=== PATIENT | female | born 1985 | race American Indian/Alaskan Native ===

== ENCOUNTER 2016-09-22 21:30 | Emergency (ER) | payer MEDICAID ==
[2016-09-22 22:47] LABS: Basophils % (Auto) 0.2 % (0.0-1.8); Hematocrit 39.9 % (30.3-42.9); Hemoglobin 13.3 gm/dl (10.1-14.3); Mean Corpuscular HGB Conc 33 % (30-34); Mean Corpuscular Hemoglobin 33 pg (28-32); Mean Corpuscular Volume 100 fl (79-97); Platelet Count 244 K/mm3 (140-440); Red Blood Count 3.98 M/mm3 (3.65-5.03); Red Cell Distribution Width 15.3 % (13.2-15.2); White Blood Count 14.5 K/mm3 (4.5-11.0)
[2016-09-22 23:58] LABS: Alanine Aminotransferase 8 units/L (7-56); Albumin/Globulin Ratio 1.3 %; Alkaline Phosphatase 70 units/L (35-129); Anion Gap 19 mmol/L; Bilirubin,Total 1.3 mg/dL (0.1-1.2); Blood Urea Nitrogen 6 mg/dL (7-17); Calcium 8.9 mg/dL (8.4-10.2); Carbon Dioxide 23 mmol/L (22-30); Chloride 99.4 mmol/L (98-107); Glucose 96 mg/dL (65-100); Lipase 12 units/L (13-60); Potassium 3.5 mmol/L (3.6-5.0); Sodium 138 mmol/L (137-145)
[2016-09-23 00:56] VITALS: BP 136/99
--- NOTE | 2016-09-24 11:05 | ED Elopement Review ---
ED Pt Elopement review - Results review Lab results: Laboratory Tests 09/22/16 09/22/16 22:34 22:34 WBC 14.5 H RBC 3.98 Hgb 13.3 Hct 39.9 MCV 100 H MCH 33 H MCHC 33 RDW 15.3 H Plt Count 244 Lymph % (Auto) 6.0 L Garfield % (Auto) 3.8 Eos % (Auto) 1.0 Baso % (Auto) 0.2 Lymph # 0.9 L Garfield # 0.6 Eos # 0.1 Baso # 0.0 Seg Neutrophils % 89.0 H Seg Neutrophils # 12.9 H Sodium 138 Potassium 3.5 L Chloride 99.4 Carbon Dioxide 23 Anion Gap 19 BUN 6 L Creatinine 0.6 L Estimated GFR > 60 BUN/Creatinine Ratio 10.00 Glucose 96 Calcium 8.9 Total Bilirubin 1.3 H AST 11 ALT 8 Alkaline Phosphatase 70 Total Protein 7.0 Albumin 4.0 Albumin/Globulin Ratio 1.3 Lipase 12 L - Call Back decision Pt Call Back Decision: Pt to F/U with PMD (leukocytosis and abd pain)
== END 2016-09-23 03:00 | disposition left against medical advice (07) ==
LOC: ED 21:30
DX: R19.7 Diarrhea, unspecified (principal); R10.10 Upper abdominal pain, unspecified; Z53.21 Procedure and treatment not carried out due to patient leaving prior to being seen by health care provider
CPT/HCPCS: 36415; 80053; 83690; 85025